=== PATIENT | female | born 1980 | race Caucasian/White ===

== ENCOUNTER 2017-06-30 11:02 | Emergency (ER) | payer BC ==
[2017-06-30 11:11] VITALS: TEMP 97.9
[2017-06-30] MEDS ORDERED: Sodium Chloride 0.9% 1,000 ML IV STA (11:55)
[2017-06-30 12:29] VITALS: RESP 16; O2SAT 100
[2017-06-30 13:39] LABS: BASO # 0.1 K/uL (0.0-0.2); BASO % 0.7 % (0.0-2.0); EOS # 0.2 K/uL (0.0-0.7); EOS % 2.5 % (0.0-4.0); HEMATOCRIT 38.5 % (34.0-47.0); LYMPH # 2.7 K/uL (1.0-4.3); LYMPH % 35.8 % (20.0-40.0); MEAN CELL VOLUME 84.3 fL (81.0-99.0); MEAN CORPUSCULAR HGB CONC 33.2 g/dL (33.0-37.0); MEAN PLATELET VOLUME 9.7 fL (7.2-11.7); MONO # 0.6 K/uL (0.0-0.8); MONO % 7.9 % (0.0-10.0); RED CELL DISTRIBUTION WIDTH 13.6 % (11.5-14.5); WHITE BLOOD COUNT 7.6 K/uL (4.8-10.8)
--- NOTE | 2017-06-30 13:39 | US ---
HISTORY: /bleeding COMPARISON: Comparison is made to the previous study dated 04/08/2015 TECHNIQUE: Transabdominal and endovaginal ultrasound examination of the pelvis. FINDINGS: UTERUS: Measures 11 x 5 x 5.2 cm. The uterus is anteverted demonstrate heterogeneous echotexture. There is a calcified fibroid at the posterior wall measures 1.5 x 1.1 x 1.6 centimeter. ENDOMETRIUM: Measures 13.4 mm in diameter. Unremarkable. CERVIX: No cervical abnormality identified. RIGHT OVARY: Measures 3 x 1.3 x 2.3 cm. No solid mass. Normal flow. LEFT OVARY: Measures 2 x 1.1 x 2.1 cm. No solid mass. Normal flow. FREE FLUID: No significant free fluid noted. OTHER FINDINGS: None. IMPRESSION: No evidence of intrauterine . No definite ultrasound evidence of ectopic . However, correlation with beta HCG level and close follow-up reassessment is recommended. Heterogeneous uterus. Calcified fibroid again seen at the posterior wall. Possible clot at the uterine cervix.
[2017-06-30 13:46] LABS: INR 1.1
[2017-06-30 14:03] VITALS: PULSE 79
[2017-06-30 14:12] LABS: ALB/GLOB RATIO 1.1 (1.0-2.1); ALKALINE PHOSPHATASE 53 U/L (38-126); ALT/SGPT 35 U/L (9-52); AST/SGOT 18 U/L (14-36); BILIRUBIN,TOTAL 0.4 mg/dL (0.2-1.3); BLOOD UREA NITROGEN 9 mg/dL (7-17); CALCIUM 8.3 mg/dl (8.6-10.4); CARBON DIOXIDE 23 mmol/L (22-30); CHLORIDE 105 mmol/L (98-107); GFR AFRICAN-AMERICAN > 60; GLUCOSE,RANDOM 77 mg/dL (65-105); POTASSIUM 3.8 mmol/L (3.6-5.2); SODIUM 139 mmol/L (132-148); TOTAL PROTEIN 6.6 g/dL (6.3-8.3)
[2017-06-30 15:04] VITALS: BP 104/78
--- NOTE | 2017-06-30 15:04 | C.PDOC ---
History Of Present Illness 36-year-old female, (at 8-weeks, ), presents to the emergency department with complaints of abdominal pain. Patient states she is experiencing mild-lower abdominal pain, that is associated with cramping. Pain worsened this morning, and became associated with clots, resulting in her coming to ED for evaluation. Patient denies nausea/vomiting, fevers, chills, chest pain, shortness of breath, chest pain, or any other associated symptoms. No other complaints at this time. Time Seen by Provider: 06/30/17 11:24 Chief Complaint (Nursing): Female Genitourinary History Per: Patient History/Exam Limitations: no limitations Onset/Duration Of Symptoms: Days Current Symptoms Are (Timing): Still Present Severity: Moderate Past Medical History Reviewed: Historical Data, Nursing Documentation, Vital Signs Vital Signs: Last Vital Signs Temp 97.9 F 06/30/17 11:10 Pulse 79 06/30/17 14:00 Resp 16 06/30/17 15:03 BP 104/78 06/30/17 15:03 Pulse Ox 100 06/30/17 17:00 - [employer] Procedures D & C POST DELIVERY (08/12/14) Family History: States: No Known Family Hx - Social History Hx Tobacco Use: No Hx Alcohol Use: No Hx Substance Use: No - Immunization History Hx Tetanus Toxoid Vaccination: Yes Hx Influenza Vaccination: Yes Hx Pneumococcal Vaccination: Yes Review Of Systems Except As Marked, All Systems Reviewed And Found Negative. Constitutional: Negative for: Fever Cardiovascular: Negative for: Palpitations Respiratory: Negative for: Shortness of Breath Gastrointestinal: Negative for: Nausea, Vomiting Genitourinary: Positive for: Vaginal Bleeding, Pelvic Pain Musculoskeletal: Negative for: Back Pain Neurological: Negative for: Weakness, Numbness Physical Exam - Physical Exam Appears: Non-toxic, No Acute Distress Skin: Warm, Dry, No Rash Head: Atraumatic, Normacephalic Eye(s): bilateral: Normal Inspection, PERRL Nose: Normal Oral Mucosa: Moist Lips: Normal Appearing Neck: Normal ROM Cardiovascular: Rhythm Regular, No Murmur Respiratory: Normal Breath Sounds, No Accessory Muscle Use Gastrointestinal/Abdominal: Soft, Tenderness (Mild, lower), No Guarding, No Rebound Pelvic: Vaginal Bleeding, Cervix Open (1 finger width. ) Extremity: Normal ROM Neurological/Psych: Oriented x3, Normal Speech ED Course And Treatment - Laboratory Results Result Diagrams: 06/30/17 13:30 06/30/17 13:54 O2 Sat by Pulse Oximetry: 100 - CT Scan/US US abdomen Other Rad Studies (CT/US): Read By Radiologist, Radiology Report Reviewed CT/US Interpretation: Accession No. : [id number]. Patient Name / ID : MERCY HUMMEL / [id number]. Exam Date : 06/30/2017 12:35:58 ( Approved ). Study Comment : Sex / Age : F / 36Y. Creator : Mag Bass. Dictator : Mag Bass. Ball Holder : Projection Welding Machine Operator : Mag Bass. Approver2 : Report Date : 06/30/2017 13:38:11. My Comment : . HISTORY: / bleeding. COMPARISON: Comparison is made to the previous study dated 2014. TECHNIQUE: Transabdominal and endovaginal ultrasound examination of the pelvis. FINDINGS: UTERUS: Measures 11 x 5 x 5.2 cm. The uterus is anteverted demonstrate heterogeneous echotexture. There is a calcified fibroid at the posterior wall measures 1.5 x 1.1 x 1.6 centimeter. ENDOMETRIUM: Measures 13.4 mm in diameter. Unremarkable. CERVIX: No cervical abnormality identified. RIGHT OVARY: Measures 3 x 1.3 x 2.3 cm. No solid mass. Normal flow. LEFT OVARY: Measures 2 x 1.1 x 2.1 cm. No solid mass. Normal flow. FREE FLUID: No significant free fluid noted. OTHER FINDINGS: None. IMPRESSION: No evidence of intrauterine . No definite ultrasound evidence of ectopic . However, correlation with beta HCG level and close follow-up reassessment is recommended. Heterogeneous uterus. Calcified fibroid again seen at the posterior wall. Possible clot at the uterine cervix. Medical Decision Making Medical Decision Making: Plan: * Type and Screen * Beta-HCG, CMP * CBC, PTT, PT * Morphine, IVF * US Pelvis/Transvaginal * Reassess and Disposition Reassess Patient states she does not want a D&C, because she wants to try and pass it herself, and has an appointment with her OBGYN in two days. Clot collected and sent to pathology lab. Disposition - Disposition Disposition: HOME/ ROUTINE Disposition Time: 15:03 Condition: STABLE Additional Instructions: Follow up with OBGYN within 1-2 days. Return to Ed if feel worse. Instructions: Spontaneous Miscarriage (ED) Forms: [employer] (Greek) - Clinical Impression Clinical Impression: Incomplete miscarriage - Scribe Statement The provider has reviewed the documentation as recorded by the Scribe (Renny Gonzalez) All medical record entries made by the Scribe were at my direction and personally dictated by me. I have reviewed the chart and agree that the record accurately reflects my personal performance of the history, physical exam, medical decision making, and the department course for this patient. I have also personally directed, reviewed, and agree with the discharge instructions and disposition.
== END 2017-06-30 15:12 | disposition home or self-care (01) ==
LOC: C.ER 11:02
DX: O03.4 Incomplete spontaneous abortion without complication (principal)
CPT/HCPCS: 76830; 76856; 80053; 84702; 85025; 85610; 85730; 88305; 96361; 96374; 99285; J2270; J7040

== ENCOUNTER 2017-09-10 17:26 | Emergency (ER) | payer BC ==
[2017-09-10 17:43] VITALS: BP 105/69; RESP 18; TEMP 97.5
--- NOTE | 2017-09-10 18:05 | C.PDOC ---
History Of Present Illness 36 yr old female presents to the ER stating she missed her period, LMP was . Patient reports positive test. Patient reports history of high risk and is wondering WHETHER NEEDS progesterone. Patient denies fever , vomiting, abdominal pain, dysuria, vaginal bleeding, weakness or numbness. Time Seen by Provider: 09/10/17 18:01 Chief Complaint (Nursing): Medical Clearance History Per: Patient History/Exam Limitations: no limitations Past Medical History Reviewed: Historical Data, Nursing Documentation, Vital Signs Vital Signs: Last Vital Signs Temp 97.5 F L 09/10/17 17:40 Pulse 108 H 09/10/17 17:40 Resp 18 09/10/17 17:40 BP 105/69 09/10/17 17:40 Pulse Ox 99 09/10/17 18:33 - [employer] Procedures D & C POST DELIVERY (08/12/14) Family History: States: No Known Family Hx - Social History Hx Tobacco Use: No Hx Alcohol Use: No Hx Substance Use: No - Immunization History Hx Tetanus Toxoid Vaccination: Yes Hx Influenza Vaccination: Yes Hx Pneumococcal Vaccination: Yes Review Of Systems Except As Marked, All Systems Reviewed And Found Negative. Constitutional: Negative for: Fever Gastrointestinal: Negative for: Vomiting, Abdominal Pain Genitourinary: Negative for: Dysuria, Vaginal Bleeding Neurological: Negative for: Weakness, Numbness Physical Exam - Physical Exam Appears: Non-toxic, No Acute Distress Skin: Warm, Dry, No Rash Head: Atraumatic, Normacephalic Oral Mucosa: Moist Respiratory: Normal Breath Sounds Gastrointestinal/Abdominal: Normal Exam, Soft, No Tenderness, No Guarding, No Rebound Extremity: Normal ROM, No Swelling Neurological/Psych: Oriented x3, Normal Speech, Normal Motor, Normal Sensation ED Course And Treatment O2 Sat by Pulse Oximetry: 99 (RA) Pulse Ox Interpretation: Normal Progress - Re-Evaluation Re-evaluation Note: 09/10/17 18:[address] CHIN 09/10/17 18:33 DR CHIN UNAVAILABLE FOR IMMEDIATE CONSULT. PT OFFERED US, STATES WILL FU OUTPT. PENDING OBGYN APPT MID SEPTEMBER. 09/10/17 18:37 D/W DR CHIN AGREES W PLAN, FU OBGYN SCHEDULED Medical Decision Making Medical Decision Making: PLAN: * HCG * Urinalysis Disposition Counseled Patient/Family Regarding: Studies Performed, Diagnosis, Need For Followup - Disposition Referrals: YOUR,OBGYN [Other] Disposition: HOME/ ROUTINE Disposition Time: 18:32 Condition: GOOD Instructions: (ED) Forms: [employer] (Togolese) - Clinical Impression Clinical Impression: - Scribe Statement The provider has reviewed the documentation as recorded by the Carmencitaibe Ioana Tong Provider Attestation: All medical record entries made by the Carmencitaibtrent were at my direction and personally dictated by me. I have reviewed the chart and agree that the record accurately reflects my personal performance of the history, physical exam, medical decision making, and the department course for this patient. I have also personally directed, reviewed, and agree with the discharge instructions and disposition.
--- NOTE | 2017-09-10 18:05 | C.PDOC ---
Time Seen by Provider: 09/10/17 18:01 Chief Complaint (Nursing): Medical Clearance Past Medical History Vital Signs: Last Vital Signs Temp 97.5 F L 09/10/17 17:40 Pulse 108 H 09/10/17 17:40 Resp 18 09/10/17 17:40 BP 105/69 09/10/17 17:40 Pulse Ox 99 09/10/17 17:40 - [employer] Procedures D & C POST DELIVERY (08/12/14) - Social History Hx Tobacco Use: No Hx Alcohol Use: No Hx Substance Use: No - Immunization History Hx Tetanus Toxoid Vaccination: Yes Hx Influenza Vaccination: Yes Hx Pneumococcal Vaccination: Yes ED Course And Treatment O2 Sat by Pulse Oximetry: 99 Disposition - Disposition
[2017-09-10 18:08] LABS: RBC URINE 1 /hpf (0-3); URINE BILIRUBIN NEGATIVE (NEGATIVE); URINE BLOOD NEGATIVE (NEGATIVE); URINE COLOR Yellow (YELLOW); URINE GLUCOSE (UA) NORMAL (Normal); URINE KETONE NEGATIVE (NEGATIVE); URINE LEUKOCYTE ESTERASE NEG Leu/uL (Negative); URINE PROTEIN NEGATIVE (NEGATIVE); URINE UROBILINOGEN NORMAL mg/dL (0.2-1.0); WBC URINE < 1 /hpf (0-5)
[2017-09-10] MEDS ORDERED: Lidocaine 5% Patch TD STA (18:32)
[2017-09-10] MEDS ORDERED: Lidocaine 5% Patch TD ONE (18:37)
[2017-09-10 18:40] VITALS: PULSE 89; O2SAT 98
== END 2017-09-10 18:41 | disposition home or self-care (01) ==
LOC: C.ER 17:26
DX: O26.891 Other specified pregnancy related conditions, first trimester (principal); Z3A.00 Weeks of gestation of pregnancy not specified

== ENCOUNTER 2017-09-13 11:26 | Emergency (ER) | payer BC ==
[2017-09-13 12:12] VITALS: BMI 26.6
[2017-09-13 12:16] VITALS: RESP 16; TEMP 98.4; O2SAT 98
[2017-09-13 12:43] LABS: BASO % 0.5 % (0.0-2.0); EOS # 0.1 K/uL (0.0-0.7); EOS % 1.3 % (0.0-4.0); HEMATOCRIT 39.9 % (34.0-47.0); LYMPH # 2.5 K/uL (1.0-4.3); LYMPH % 28.3 % (20.0-40.0); MEAN CELL VOLUME 82.4 fL (81.0-99.0); MEAN CORPUSCULAR HEMOGLOBIN 26.9 pg (27.0-31.0); MEAN CORPUSCULAR HGB CONC 32.6 g/dL (33.0-37.0); MEAN PLATELET VOLUME 8.7 fL (7.2-11.7); MONO # 0.7 K/uL (0.0-0.8); MONO % 8.3 % (0.0-10.0); NRBC % 0.2 % (0.0-2.0); RED CELL DISTRIBUTION WIDTH 13.8 % (11.5-14.5); WHITE BLOOD COUNT 8.7 K/uL (4.8-10.8)
[2017-09-13 12:55] LABS: ALB/GLOB RATIO 1.2 (1.0-2.1); ALKALINE PHOSPHATASE 52 U/L (38-126); ALT/SGPT 55 U/L (9-52); AST/SGOT 24 U/L (14-36); BILIRUBIN,TOTAL 0.7 mg/dL (0.2-1.3); BLOOD UREA NITROGEN 10 mg/dL (7-17); CALCIUM 8.8 mg/dl (8.6-10.4); CARBON DIOXIDE 27 mmol/L (22-30); CHLORIDE 102 mmol/L (98-107); GFR AFRICAN-AMERICAN > 60; GLUCOSE,RANDOM 89 mg/dL (65-105); POTASSIUM 4.1 mmol/L (3.6-5.2); SODIUM 137 mmol/L (132-148); TOTAL PROTEIN 7.4 g/dL (6.3-8.3)
[2017-09-13 12:59] LABS: RBC URINE < 1 /hpf (0-3); URINE BILIRUBIN NEGATIVE (NEGATIVE); URINE BLOOD NEGATIVE (NEGATIVE); URINE COLOR Straw (YELLOW); URINE GLUCOSE (UA) NORMAL (Normal); URINE KETONE NEGATIVE (NEGATIVE); URINE LEUKOCYTE ESTERASE NEG Leu/uL (Negative); URINE PROTEIN NEGATIVE (NEGATIVE); URINE UROBILINOGEN NORMAL mg/dL (0.2-1.0); WBC URINE < 1 /hpf (0-5)
--- NOTE | 2017-09-13 13:23 | US ---
PROCEDURE: OB Pelvic Ultrasound HISTORY: pelvic pain in COMPARISON: None available. FINDINGS: UTERUS: Single Live intrauterine gestation. CRL equivalent to 6 weeks 1 day gestatioin Gestational sac diameter equivalent to 5 weeks 5 days gestation age (Ultrasound estimated): 6 weeks 0 days Date of delivery (Ultrasound estimated) : 05/09/2018 Heart rate: 119 bpm. Annika-gestational hemorrhage: None. Uterus measures 9.8 x 6.0 x 5.6 cm. No mass CERVIX: Closed. 3.3 cm length. RIGHT OVARY: Measures 2.8 x 1.3 x 2.8 cm. No mass. Normal flow. 11 mm follicular cyst. LEFT OVARY: Measures 3.5 x 2.7 x 3.0 cm. No mass. Normal flow. 1.7 cm cyst with thin internal septation. Likely physiologic. FREE FLUID: None. OTHER FINDINGS: None. IMPRESSION: Single live intrauterine gestation of approximately 6 weeks 0 days. heart rate 119. No perigestational hemorrhage.
[2017-09-13 13:36] VITALS: BP 104/68; PULSE 101
--- NOTE | 2017-09-13 13:51 | C.PDOC ---
History Of Present Illness 36 year old female, with history of demise, presents to ED for evaluation of abdominal discomfort that started today. Pt states that she is but has not been evaluated by a physician yet. Otherwise, denies vaginal bleeding, spotting, n/v/d, or fever. Chief Complaint (Nursing): Abdominal Pain History Per: Patient History/Exam Limitations: no limitations Onset/Duration Of Symptoms: Days Current Symptoms Are (Timing): Still Present Location Of Pain/Discomfort: Diffuse Radiation Of Pain To:: None Quality Of Discomfort: "Pain" Associated Symptoms: denies: Loss Of Appetite, Back Pain, Chest Pain, Constipation, Urinary Symptoms Exacerbating Factors: None Alleviating Factors: None Recent travel outside of the [place]: No Additional History Per: Patient Abnormal Vaginal Bleeding: No Past Medical History Reviewed: Historical Data, Nursing Documentation, Vital Signs Vital Signs: Last Vital Signs Temp 98.4 F 09/13/17 11:49 Pulse 101 H 09/13/17 13:36 Resp 16 09/13/17 13:36 BP 104/68 09/13/17 13:36 Pulse Ox 98 09/13/17 14:20 - [employer] Procedures D & C POST DELIVERY (08/12/14) Family History: States: Unknown Family Hx - Social History Hx Tobacco Use: No Hx Alcohol Use: No Hx Substance Use: No - Immunization History Hx Tetanus Toxoid Vaccination: Yes Hx Influenza Vaccination: Yes (2016) Hx Pneumococcal Vaccination: Yes Review Of Systems Except As Marked, All Systems Reviewed And Found Negative. Constitutional: Negative for: Fever, Chills Cardiovascular: Negative for: Chest Pain Respiratory: Negative for: Shortness of Breath Gastrointestinal: Positive for: Abdominal Pain. Negative for: Nausea, Vomiting , Diarrhea Genitourinary: Negative for: Dysuria, Frequency, Hematuria Musculoskeletal: Negative for: Back Pain Physical Exam - Physical Exam Appears: Non-toxic, No Acute Distress Skin: Normal Color, Warm, Dry Head: Atraumatic, Normacephalic Eye(s): bilateral: Normal Inspection Oral Mucosa: Moist Cardiovascular: Rhythm Regular, No Murmur Respiratory: Normal Breath Sounds, No Rales, No Rhonchi, No Wheezing Gastrointestinal/Abdominal: Soft, No Tenderness Extremity: Normal ROM Neurological/Psych: Oriented x3, Normal Speech ED Course And Treatment - Laboratory Results Result Diagrams: 09/13/17 12:38 09/13/17 12:38 O2 Sat by Pulse Oximetry: 98 Pulse Ox Interpretation: Normal - CT Scan/US Preg 1st trimester US Other Rad Studies (CT/US): Read By Radiologist, Radiology Report Reviewed CT/US Interpretation: Accession No. : [id number]. Patient Name / ID : MERCY HUMMEL / [id number]. Exam Date : 09/13/2017 12:54:14 ( Approved ). Study Comment : Sex / Age : F / 36Y. Creator : Bipin Del Castillo MD. Dictator : Bipin Del Castillo MD. Assembler Musical Equipment : Design Printing Machine Set Up Operator : Bipin Del Castillo MD. Approver2 : Report Date : 09/13/2017 13:21:46. My Comment : . PROCEDURE: OB Pelvic Ultrasound. HISTORY: pelvic pain in . COMPARISON: None available. FINDINGS: UTERUS: Single Live intrauterine gestation. CRL equivalent to 6 weeks 1 day gestatioin. Gestational sac diameter equivalent to 5 weeks 5 days gestation. age (Ultrasound estimated): 6 weeks 0 days. Date of delivery (Ultrasound estimated) : 2017. Heart rate: 119 bpm. Annika-gestational hemorrhage: None. Uterus measures 9.8 x 6.0 x 5.6 cm. No mass. CERVIX: Closed. 3.3 cm length. RIGHT OVARY: Measures 2.8 x 1.3 x 2.8 cm. No mass. Normal flow. 11 mm follicular cyst. LEFT OVARY: Measures 3.5 x 2.7 x 3.0 cm. No mass. Normal flow. 1.7 cm cyst with thin internal septation. Likely physiologic. FREE FLUID: None. OTHER FINDINGS: None. IMPRESSION: Single live intrauterine gestation of approximately 6 weeks 0 days. heart rate 119. No perigestational hemorrhage. Progress Note: Blood work, UA, preg 1st trimester US ordered and reviewed. On re -evaluation, patient is resting comfortably, no acute distress. Patient is being discharged home, and is instructed to follow up with 1-2 days for further evaluation. Disposition - Disposition Disposition: HOME/ ROUTINE Disposition Time: 13:49 Condition: STABLE Additional Instructions: Follow up with your PMD and OBGYN within 2-3 days. Return to ED if feel worse. Prescriptions: Vit Calc,Iron,Folic [ Vitamins] 1 each PO DAILY #30 tablet Instructions: Pelvic Rest (ED) Forms: [employer] (Persian) - Clinical Impression Clinical Impression: Pelvic pain during - PA / PHOTO PRINT SPECIALIST / Resident Statement MD/DO has reviewed & agrees with the documentation as recorded. - Scribe Statement The provider has reviewed the documentation as recorded by the Scribe Shaw Clements All medical record entries made by the Carmencitaibtrent were at my direction and personally dictated by me. I have reviewed the chart and agree that the record accurately reflects my personal performance of the history, physical exam, medical decision making, and the department course for this patient. I have also personally directed, reviewed, and agree with the discharge instructions and disposition.
== END 2017-09-13 13:59 | disposition home or self-care (01) ==
LOC: C.ER 11:26
DX: O26.891 Other specified pregnancy related conditions, first trimester (principal); Z3A.01 Less than 8 weeks gestation of pregnancy; R10.2 Pelvic and perineal pain